=== PATIENT | female | born 1960 | race Hispanic/Latino ===

== ENCOUNTER 2019-03-13 09:52 | Inpatient (IN) | payer MEDICAID, OTHER ==
[2019-03-13 10:02] VITALS: O2SAT 100; BMI 21.0
--- NOTE | 2019-03-13 10:03 | ED PDOC ---
Psych Transfer Clearance - Clearance Statement Clearance Statement: Reviewed vital signs, lab results and transfer papers. Patient clinically stable for psychiatric admission.
[2019-03-13] MEDS ORDERED: Bismuth Subsalicylate 262 mg/15 ml Sus (240 ml) PO PRN (10:25)
[2019-03-13] MEDS ORDERED: Magnesium Hydroxide Susp 30 ml UD PO PRN (10:25)
[2019-03-13] MEDS ORDERED: Alum-Mag Hydrox-Simethicone Susp (30 mL) PO PRN (10:25)
--- NOTE | 2019-03-13 11:50 | PCM.BM ---
<[place] - Last Filed: 03/13/19 11:48> Treatment Plan Problems - Problems identified on initial assessmt High Risk: Violence Date Initiated: 03/13/19 Time Initiated: 11:49 Assessment reference: NA Status: Active Medication nonadherence Date Initiated: 03/13/19 Time Initiated: 11:50 Assessment reference: NA Status: Active Impaired Communication Date Initiated: 03/13/19 Time Initiated: 11:51 Assessment reference: NA Status: Active Treatment assets and liabiliti Patient Assests: ADL independent Patient Liabilities: relationship conflicts - Milieu Protocol Maintain good personal hygiene: daily Encourage regular showers, daily Remind patient to perform daily oral care, daily Assist patient to perform ADL's Maintain personal safety: every shift Educate patient to report safety concerns to staff, every shift Monitor environment for contraband/sharps Medication safety: Monitor for expected outcome, potential side effects: every shift, Assess barriers to learning: every shift, Assess readiness for medication education: every shift Family Contact Family involvement: Family/SO is involved Family contact: Patient agrees to contact <Renée Chao - Last Filed: 03/14/19 12:21> Treatment Plan Problems - Problems identified on initial assessmt High Risk: Violence Date Initiated: 03/13/19 Time Initiated: 11:49 Assessment reference: NA Status: Active Medication nonadherence Date Initiated: 03/13/19 Time Initiated: 11:50 Assessment reference: NA Status: Active Impaired Communication Date Initiated: 03/13/19 Time Initiated: 11:51 Assessment reference: NA Status: Active Problem 2 Date Initiated: 03/13/19 Time Initiated: 11:50 Problem 3 Date Initiated: 03/13/19 Time Initiated: 11:51 Assessment reference: NA Status: Active - Diagnosis (1) Schizoaffective disorder Status: Acute Interventions: Medication management, Individual and group therapy, Psychoeducation 03/14/19 12:22 Treatment Plan Review - Problem High Risk: Violence Time Initiated: 11:49 Medication nonadherence Time Initiated: 11:50 Impaired Communication Time Initiated: 11:51 Problem 2 Time Initiated: 11:50 Problem 3 Time Initiated: 11:51 <Lalito Winchester - Last Filed: 03/14/19 15:23> Family Contact Family contact: Patient agrees to contact, Family has been contacted by patient, Telephone contact initiated by staff Family contact name: Ankita - Daughter Family contacted how many times per week?: 5 Family contact comment: Help Desk Technician spoke with pt's daughter, Ankita [phone]. Ankita reported that she did not want pt admitted to [facility] and is angered and upset that she was not consulted beforehand. Ankita reported that pt is far from her home and she does not understand why pt is so far. Ankita refused to speak to commercial loan underwriter regarding pt's history until commercial loan underwriter reads pt's treatment summary in chart. Help Desk Technician looked through pt's chart twice and did not find summary. Help Desk Technician then called Ankita again and she will attempt to fax in a few hours. Ankita then reported that she would come to the unit around 1730 and expects to meet with commercial loan underwriter then to discuss pt's history. Ankita reported that pt was to be treated at [facility] in [facility] but did not attend. Help Desk Technician awaiting treatment summary fax. - Goals for Treatment Patient goals for treatment: Pt is not angaged in treatment and is asking how long she will have to stay. Pt is denying all acute phychiatric symptoms at this time and has no goals for treatment. Discharge/Continuing Care - Education Needs Education Needs: Family Medication, Family Diagnosis/Disease Process, Family Coping Skills, Family Aftercare Safety Plan, Patient Medication, Patient Diagnosis/Disease Process, Patient Coping Skills, Patient Aftercare Safety Plan - Discharge Discharge Criteria: Tolerates medication w/o severe side effects, Free of Suicidal thoughts, Free of paranoid thoughts, Free of agitation, No longer exhibiting s/s of withdrawal, Reduction of target symptoms Discharge to:: Home - Treatment Team Participation Discussed with Family/SO: Yes Was Patient/Family/SO present at Treatment Team Meeting: Yes <Alena Alvarez - Last Filed: 03/16/19 08:22> Discharge/Continuing Care - Discharge Discharge to:: With Family - Additional Comments 03/16/19 08:14 Pt seen and discussed in team meeting. Chief Hydroelectric Station Operator services offered to pt and declined stating "too long." Reason for hospitalization reviewed and discussed. Pt reported feeling unsafe at home talking about someone wanting to attack her. When asked if it was a person or animal, pt stated it was a person; however, cannot state who or why. Pt reported feeling fearful of returning home. 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 Pt resides alone. Pt's medical and social issues reviewed and discussed. Pt's medications reviewed. Please refer to Dr. Chao progress note for medication recommendations and plan. Tx plan reviewed a nd discussed, pt verbalized agreement. Pt signed written consent form for her daughter, Ankita Banda. Eren THOMAS to continue to follow case.
--- NOTE | 2019-03-13 12:26 | PCM.PSYCH ---
Initial Psychiatric Evaluation - Initial Psychiatric Evaluation Type of Admission: Voluntary Legal Status: Capacity Chief Complaint (in patient's own words): Bizarre Behavior Patient's Reaction to Hospitalization: HPI: 59 yo female w/ h/o schizoaffective disorder, presents w/ acute bizarre behavior, paranoia, poor appetite, making vague suicidal comments to family that she would "be better off ." Patient is currently not cooperative with interview, guarded and refusing to answer most questions. She denies acute AH/VH, but is bizarre and seems internally preoccupied. She denies acute SI/HI to telegraphic typewriter installer. Patient is refusing to change her medications. PPHx: As per chart, patient has a history of Schizoaffective Disorder and is currently on Latuda 40 mg PO Daily and Elavil 12.5 mg PO HS. Patient will not provide any more information. PMHx: Hypothryoidism ALL: NKDA SHx: Denies drugs/etoh/cig use Current Medications: Active Medications Generic Name Dose Route Start Last Admin Trade Name Freq PRN Reason Stop Dose Admin Acetaminophen 650 mg 03/13/19 10:25 Tylenol 325mg Tab PO Q4 PRN Pain, moderate (4-7) Al Hydrox/Mg Hydrox/Simethicone 30 ml 03/13/19 10:25 Maalox Plus 30 Ml PO Q4 PRN Dyspepsia Bismuth Subsalicylate 524 mg 03/13/19 10:25 Pepto-Bismol PO Q4 PRN Diarrhea Lorazepam 0.5 mg 03/13/19 10:25 Ativan PO 03/27/19 10:26 HS PRN Insomnia Lorazepam 0.5 mg 03/13/19 10:25 Ativan PO 03/27/19 10:26 Q6 PRN Anixety/Agitation Magnesium Hydroxide 30 ml 03/13/19 10:25 Milk Of Magnesia PO HS PRN Constipation Past Psychiatric History - Past Psychiatric History Pertinent Medical Hx (Current Medical&Sleep Prob, Allergies): Allergies Allergy/AdvReac Type Severity Reaction Status Date / Time No Known Allergies Allergy Verified 03/13/19 10:02 Amitriptyline [Elavil] 12.5 mg PO HS 03/13/19 Levothyroxine [Synthroid] 75 mcg PO DAILY 03/13/19 Lurasidone Hydrochloride [Latuda] 40 mg PO DAILY 03/13/19 Review of Systems - Psychiatric Psychiatric: As Per HPI, Abnormal Sleep Pattern, Behavioral Changes, Change in Appetite, Difficulty Concentrating, Irritability, Paranoia, Suicidal Ideation Mental Status Examination - Personal Presentation Personal Presentation: Looks stated age - Affect Affect: Constricted - Motor Activity Motor Activity: Calm - Reliability in Providing Information Reliability in Providing Information: Poor, due to alteration in thoughts - Speech Speech: Coherent - Mood Mood: Neutral - Formal Thought Process Formal Thought Process: Delusions, Paranoia - Hallucinations/Delusions Additional comments: Denies AH/VH, but patient seems internally preoccupied - Obsessions/Compulsions Obsessions: No Compulsions: No - Cognitive Functions Orientation: Person, Place, Situation, Time Sensorium: Alert Judgement: Imparied, as evidence by: Poor judgement, Imparied, as evidence by: Lack of insight into illness - Risk Risk: Diminished functioning - Strength & Assets Inventory Strength & Assets Inventory: Family support DSM 5 DX - DSM 5 DSM 5 Diagnosis: Schizoaffective Disorder - Recommended/Plan of Treatment Treatment Recommendations and Plan of Treatment: Schizoaffective Disorder -Admit to psychiatry unit -Individual and group therapy -Psychoeducation -Continue Latuda and Elavil; patient not agreeable to medication changes -Obtain collateral history -Medicine consult -Disposition planning Projected ELOS: 7-10 days Discharge Plan and Discharge Criteria: Discharge when patient is psychiatrically stable - Smoking Cessation Smoking Cessation Initiated: No Reason for not providing: Not indicated
[2019-03-13] MEDS ORDERED: LATUDA 40 MG PO SCH (12:45)
--- NOTE | 2019-03-13 18:29 | CP.PCM.CON ---
History of Present Illness - History of Present Illness History of Present Illness: 59 yo female transferred from [facility] to [facility] because of psychotic behaviour. Review of Systems - Review of Systems Systems not reviewed;Unavailable: Uncooperative Past Patient History - Tetanus Immunizations Tetanus Immunization: Unknown - Past Social History Smoking Status: Never Smoked Chewing Tobacco Use: No Cigar Use: No Alcohol: None Drugs: Denies - CARDIAC Hx Cardiac Disorders: No - PULMONARY Hx Respiratory Disorders: No - NEUROLOGICAL Hx Neurological Disorder: No - HEENT Hx HEENT Problems: No - RENAL Hx Chronic Kidney Disease: No - ENDOCRINE/METABOLIC Hx Endocrine Disorders: No - INTEGUMENTARY Hx Dermatological Problems: No - MUSCULOSKELETAL/RHEUMATOLOGICAL Hx Musculoskeletal Disorders: No Hx Falls: No - GASTROINTESTINAL Hx Gastrointestinal Disorders: No - GENITOURINARY/GYNECOLOGICAL Hx Genitourinary Disorders: No - PSYCHIATRIC Hx Bipolar Disorder: Yes Hx Substance Use: No - SURGICAL HISTORY Hx Surgeries: No - ANESTHESIA Hx Anesthesia: No Meds Allergies/Adverse Reactions: Allergies Allergy/AdvReac Type Severity Reaction Status Date / Time No Known Allergies Allergy Verified 03/13/19 10:02 - Medications Medications: Current Medications Acetaminophen (Tylenol 325mg Tab) 650 mg PO Q4 PRN PRN Reason: Pain, moderate (4-7) Al Hydrox/Mg Hydrox/Simethicone (Maalox Plus 30 Ml) 30 ml PO Q4 PRN PRN Reason: Dyspepsia Amitriptyline HCl (Elavil) 12.5 mg PO HS JULIETA Bismuth Subsalicylate (Pepto-Bismol) 524 mg PO Q4 PRN PRN Reason: Diarrhea Home Med (Patient's Own Medication) 40 unit PO DAILY JULIETA Levothyroxine Sodium (Synthroid) 75 mcg PO DAILY@0630 JULIETA Lorazepam (Ativan) 0.5 mg PO HS PRN PRN Reason: Insomnia Stop: 03/27/19 10:26 Lorazepam (Ativan) 0.5 mg PO Q6 PRN PRN Reason: Anixety/Agitation Stop: 03/27/19 10:26 Magnesium Hydroxide (Milk Of Magnesia) 30 ml PO HS PRN PRN Reason: Constipation Physical Exam - Constitutional Appears: Well (patient refused to be examined) Results - Vital Signs Recent Vital Signs: Last Vital Signs Temp 98.5 F 05/11/19 16:34 Pulse 70 03/13/19 16:34 Resp 18 03/13/19 16:34 BP 120/78 03/13/19 16:34 Pulse Ox 100 03/13/19 10:00 Assessment & Plan (1) Psychosis Status: Acute Comment: psyche is managing
[2019-03-14] MEDS: Levothyroxine 75 MCG TAB PO SCH ×2 (06:09→09:34)
[2019-03-14] MEDS: LATUDA 40 MG PO SCH (09:34)
[2019-03-14 11:23] LABS: ALB/GLOB RATIO 1.5 (1.0-2.1); ALBUMIN 4.7 g/dL (3.5-5.0); ALT/SGPT 35 U/L (9-52); AST/SGOT 28 U/L (14-36); BLOOD UREA NITROGEN 12 mg/dl (7-17); CALCIUM 10.6 mg/dL (8.4-10.2); GFR NON-AFRICAN AMERICAN > 60; HDL CHOLESTEROL 71 MG/DL (30-70)
[2019-03-14 11:33] LABS: LDL CHOLESTEROL 66 mg/dL (0-129)
[2019-03-14 12:09] LABS: HEMOGLOBIN 14.2 g/dL (12.0-16.0); MEAN CELL VOLUME 81.1 fl (81.0-99.0); MEAN CORPUSCULAR HEMOGLOBIN 25.9 pg (27.0-31.0); MEAN CORPUSCULAR HGB CONC 31.9 g/dL (33.0-37.0); RBC 5.51 Mil/uL (3.80-5.20); RED CELL DISTRIBUTION WIDTH 18.2 % (11.5-14.5); WHITE BLOOD COUNT 7.6 K/uL (4.8-10.8)
--- NOTE | 2019-03-14 12:33 | PCM.PYCHPN ---
Psychiatric Progress Note - Psychiatric Progress Note Patient seen today, length of contact: Pt evaluated, case discussed w/ team, chart reviewed Patient Chief Complaint: Bizarre Behavior Problems Identified/Issues Discussed: Patient continues to be guarded, evasive, seems internally preoccupied, although she denies acute AH/VH. She continues to refuse medication changes. She denies SI/HI. She states that she does not feel safe at home and continues to be paranoid. Medication Change: No (Patient refusing medication changes) Medical Record Reviewed: Yes Consults ordered or reviewed: Medicine consult Mental Status Examination - Cognitive Function Orientation: Person, Place, Situation, Time - Mood Mood: Neutral - Affect Affect: Constricted - Formal Thought Process Formal Thought Process: Delusions, Paranoia Psychotic Thoughts and Behaviors: +Paranoia - Suicidal Ideation Suicidal Ideation: No - Homicidal Ideation Homicidal Ideation: No Goal/Treatment Plan - Goal/Treatment Plan Need for Continued Stay: Remain at risks for inpatient hospitalization, Discharge may exacerbated symptoms Progress Toward Problem(s) and Goals/Treatment Plan: Schizoaffective Disorder -Individual and group therapy -Psychoeducation -Continue Latuda and Elavil; patient not agreeable to medication changes -Obtain collateral history -Medicine consult -Disposition planning
[2019-03-15] MEDS: LATUDA 40 MG PO SCH (09:24)
[2019-03-15] MEDS: Levothyroxine 75 MCG TAB PO SCH (09:25)
--- NOTE | 2019-03-15 13:27 | PCM.PYCHPN ---
Psychiatric Progress Note - Psychiatric Progress Note Patient seen today, length of contact: Pt evaluated, case discussed w/ team, chart reviewed Patient Chief Complaint: Paranoia Problems Identified/Issues Discussed: Patient continues to be paranoid and is fearful of returning home due to concerns that someone may try to harm her, she does not know who may harm her or why. She continues to be guarded and evasive. She denies acute AH/VH. She is only agreeable to increasing the Latuda at this time. She is not agreeable to changing medications. Staff Forester attempted to call patient's daughter, Ankita Banda [phone], but she did not pickling tank operator the phone and her voicemail is full. Medication Change: Yes (Attempt to increase Latuda tomorrow AM) Medical Record Reviewed: Yes Consults ordered or reviewed: Medicine consult Mental Status Examination - Cognitive Function Orientation: Person, Place, Situation, Time - Mood Mood: Neutral - Affect Affect: Constricted - Formal Thought Process Formal Thought Process: Delusions, Paranoia Psychotic Thoughts and Behaviors: +Paranoia - Suicidal Ideation Suicidal Ideation: No - Homicidal Ideation Homicidal Ideation: No Goal/Treatment Plan - Goal/Treatment Plan Need for Continued Stay: Remain at risks for inpatient hospitalization, Discharge may exacerbated symptoms Progress Toward Problem(s) and Goals/Treatment Plan: Schizoaffective Disorder -Individual and group therapy -Psychoeducation -Continue Latuda and Elavil; will attempt to increase Latuda tomorrow -Staff Forester attempted to call patient's daughter -Medicine consult -Disposition planning
--- NOTE | 2019-03-15 13:43 | CT ---
Date of service: 03/15/2019 PROCEDURE: CT HEAD WITHOUT CONTRAST. HISTORY: Worsening mental status COMPARISON: None available. TECHNIQUE: Axial computed tomography images were obtained through the head/brain without intravenous contrast. Radiation dose: Total exam DLP = 779.08 mGy-cm. This CT exam was performed using one or more of the following dose reduction techniques: Automated exposure control, adjustment of the mA and/or kV according to patient size, and/or use of iterative reconstruction technique. FINDINGS: HEMORRHAGE: No intracranial hemorrhage. BRAIN: Normal bowers-white matter differentiation and density are appreciated throughout the cerebrum and cerebellum with the brainstem appearing unremarkable as well. There is no mass effect. There is no suspicious extra-axial fluid collection and the midline brain anatomy appears diffusely unremarkable. VENTRICLES: Unremarkable. No hydrocephalus. CALVARIUM: No destructive bony lesion or displaced fracture identified including through the skullbase. PARANASAL SINUSES: Unremarkable as visualized. No significant inflammatory changes. MASTOID AIR CELLS: Unremarkable as visualized. No inflammatory changes. OTHER FINDINGS: None. IMPRESSION: Unremarkable unenhanced head CT.
[2019-03-16] MEDS: Levothyroxine 75 MCG TAB PO SCH (08:50)
[2019-03-16] MEDS: LATUDA 40 MG PO SCH (08:51)
--- NOTE | 2019-03-16 12:56 | PCM.PYCHPN ---
Psychiatric Progress Note - Psychiatric Progress Note Patient seen today, length of contact: Pt evaluated, case discussed w/ team, chart reviewed Patient Chief Complaint: Paranoia Problems Identified/Issues Discussed: Patient continues to be paranoid, anxious, guarded and fearful that someone may harm her at home. She is agreeable to increase Latuda at this time. She denies acute AH/VH. No adverse effects to medications reported. Semiconductor Packages Leak Tester spoke with patient's daughter, Ankita Banda [phone], with DANIEL THOMAS present during the conversation. We reviewed the patient's medical history, the results of her CT scan, her current medications and treatment options and her pending consults. Patient's daughter is in agreement with the treatment plan at this time. Medication Change: Yes (Increase Latuda) Medical Record Reviewed: Yes Consults ordered or reviewed: Medicine consult Mental Status Examination - Cognitive Function Orientation: Person, Place, Situation, Time - Mood Mood: Neutral - Affect Affect: Constricted - Formal Thought Process Formal Thought Process: Delusions, Paranoia Psychotic Thoughts and Behaviors: +Paranoia - Suicidal Ideation Suicidal Ideation: No - Homicidal Ideation Homicidal Ideation: No Goal/Treatment Plan - Goal/Treatment Plan Need for Continued Stay: Remain at risks for inpatient hospitalization, Discharge may exacerbated symptoms Progress Toward Problem(s) and Goals/Treatment Plan: Schizoaffective Disorder -Individual and group therapy -Psychoeducation -Increase Latuda -Continue Elavil -Case discussed w/ patient's daughter w/ MARTHA SANCHEZ present on the phone conversation -Psychology consult -Neurology consult -Medicine consult -Disposition planning
[2019-03-16 13:05] LABS: SQUAMOUS EPITHIAL 4 /hpf (0-5); URINE BACTERIA OCC (<OCC); URINE BILIRUBIN NEGATIVE (NEGATIVE); URINE BLOOD NEGATIVE (NEGATIVE); URINE CLARITY CLOUDY (Clear); URINE COLOR YELLOW (YELLOW); URINE GLUCOSE (UA) NEG (NEGATIVE); URINE LEUKOCYTE ESTERASE MOD Leu/uL (Negative); URINE PROTEIN 30 mg/dL (NEGATIVE)
--- NOTE | 2019-03-16 15:48 | CP.PCM.CON ---
History of Present Illness - History of Present Illness History of Present Illness: Neurology Consultation Note: Consult requested by Dr. Chao Mrs. Timmons is a 59-year-old woman with a past medical history of schizoa ffective disorder, who is admitted to psychiatry for bizarre behavior. Her daughter, who is a physician, states that her mother has been having progressive cognitive decline as well over the last month. When I met with the patient, she was alert, oriented, able to provide a good history and told me that she is depressed and believes that her short term memory may be affected by that. She also admitted to hearing voices and feeling distracted. Review of Systems - Review of Systems Systems not reviewed;Unavailable: Psychotic Past Patient History - Tetanus Immunizations Tetanus Immunization: Unknown - Past Social History Smoking Status: Never Smoked Chewing Tobacco Use: No Cigar Use: No Alcohol: None Drugs: Denies - CARDIAC Hx Cardiac Disorders: No - PULMONARY Hx Respiratory Disorders: No - NEUROLOGICAL Hx Neurological Disorder: No - HEENT Hx HEENT Problems: No - RENAL Hx Chronic Kidney Disease: No - ENDOCRINE/METABOLIC Hx Endocrine Disorders: No - INTEGUMENTARY Hx Dermatological Problems: No - MUSCULOSKELETAL/RHEUMATOLOGICAL Hx Falls: No - GASTROINTESTINAL Hx Gastrointestinal Disorders: No - GENITOURINARY/GYNECOLOGICAL Hx Genitourinary Disorders: No - PSYCHIATRIC Hx Substance Use: No - SURGICAL HISTORY Hx Surgeries: No - ANESTHESIA Hx Anesthesia: No Meds Allergies/Adverse Reactions: Allergies Allergy/AdvReac Type Severity Reaction Status Date / Time No Known Allergies Allergy Verified 03/13/19 10:02 - Medications Medications: Current Medications Acetaminophen (Tylenol 325mg Tab) 650 mg PO Q4 PRN PRN Reason: Pain, moderate (4-7) Al Hydrox/Mg Hydrox/Simethicone (Maalox Plus 30 Ml) 30 ml PO Q4 PRN PRN Reason: Dyspepsia Amitriptyline HCl (Elavil) 12.5 mg PO HS [facility] Last Admin: 03/15/19 21:07 Dose: 12.5 mg Bismuth Subsalicylate (Pepto-Bismol) 524 mg PO Q4 PRN PRN Reason: Diarrhea Home Med (Patient's Own Medication) 80 unit PO DAILY [facility] Last Admin: 03/16/19 08:51 Dose: 80 unit Levothyroxine Sodium (Synthroid) 75 mcg PO DAILY@0630 [facility] Last Admin: 03/16/19 08:50 Dose: 75 mcg Lorazepam (Ativan) 0.5 mg PO HS PRN PRN Reason: Insomnia Stop: 03/27/19 10:26 Lorazepam (Ativan) 0.5 mg PO Q6 PRN PRN Reason: Anixety/Agitation Stop: 03/27/19 10:26 Magnesium Hydroxide (Milk Of Magnesia) 30 ml PO HS PRN PRN Reason: Constipation Physical Exam - Constitutional Appears: Well - Head Exam Head Exam: ATRAUMATIC, NORMAL INSPECTION, NORMOCEPHALIC - Eye Exam Eye Exam: EOMI, Normal appearance, PERRL Pupil Exam: NORMAL ACCOMODATION, PERRL - ENT Exam ENT Exam: Mucous Membranes Moist, Normal Exam - Neck Exam Neck exam: Positive for: Normal Inspection - Respiratory Exam Respiratory Exam: Clear to Auscultation Bilateral, NORMAL BREATHING PATTERN - Cardiovascular Exam Cardiovascular Exam: REGULAR RHYTHM, +S1, +S2 - GI/Abdominal Exam GI & Abdominal Exam: Normal Bowel Sounds, Soft. absent: Tenderness - Extremities Exam Extremities exam: Positive for: normal inspection - Back Exam Back exam: NORMAL INSPECTION - Neurological Exam Neurological exam: Alert, CN II-XII Intact, Normal Gait, Oriented x3, Reflexes Normal - Psychiatric Exam Psychiatric exam: Depressed - Skin Skin Exam: Dry, Intact, Normal Color, Warm Results - Vital Signs Recent Vital Signs: Last Vital Signs Temp 98.0 F 03/16/19 06:00 Pulse 70 03/16/19 06:00 Resp 18 03/16/19 06:00 BP 123/78 03/16/19 06:00 Pulse Ox 100 03/13/19 10:00 - Labs Result Diagrams: 03/14/19 10:05 03/14/19 10:05 Labs: Laboratory Results - last 24 hr 03/16/19 12:42 Urine Color Yellow Urine Clarity Cloudy Urine pH 6.0 Ur Specific [place] 1.018 Urine Protein 30 Urine Glucose (UA) Neg Urine Ketones 20 Urine Blood Negative Urine Nitrate Negative Urine Bilirubin Negative Urine Urobilinogen 2.0 H Ur Leukocyte Esterase Mod Urine RBC (Auto) 2 Urine Microscopic WBC 5 Ur Squamous Epith Cells 4 Urine Bacteria Occ H Hyaline Casts 6-10 H Assessment & Plan (1) Pseudodementia Assessment and Plan: Likely due to underlying depression and is also distracted by auditory hallucinations. CT head is normal and labs appear normal. Heavy metal screen can be checked as well as B12, B6, folate, vitamin D levels. Management of the underlying condition is recommended. Neuropsychiatric testing will reveal more of the deficits. Thank you for this consultation. Status: Acute
[2019-03-17] MEDS: Levothyroxine 75 MCG TAB PO SCH (05:58)
[2019-03-17 06:17] VITALS: BP 105/70; PULSE 60; RESP 20; TEMP 97.5
[2019-03-17] MEDS: LATUDA 40 MG PO SCH (08:45)
--- NOTE | 2019-03-17 12:33 | PCM.PYCHDC ---
Mental Status Examination - Mental Status Examination Orientation: Person, Place, Situation, Time Memory: Intact Mood: Neutral Affect: Broad Speech: Appropriate Attention: WNL Formal Thought Process: No Impairment Description of patient's judgement and insight: Improving I/J Psychotic Thoughts and Behaviors: Patient denies acute AH/VH/paranoia/delusions to health technical writer Suicidal Ideation: No Current Homicidal Ideation?: No Discharge Summary - Discharge Note Reason for Hospitalization: HPI: 59 yo female w/ h/o schizoaffective disorder, presents w/ acute bizarre behavior, paranoia, poor appetite, making vague suicidal comments to family that she would "be better off ." Patient is currently not cooperative with interview, guarded and refusing to answer most questions. She denies acute AH/VH, but is bizarre and seems internally preoccupied. She denies acute SI/HI to health technical writer. Patient is refusing to change her medications. PPHx: As per chart, patient has a history of Schizoaffective Disorder and is currently on Latuda 40 mg PO Daily and Elavil 12.5 mg PO HS. Patient will not provide any more information. PMHx: Hypothryoidism ALL: NKDA SHx: Denies drugs/etoh/cig use Laboratory Data: Abnormal Lab Results 03/16/19 12:42 Urine Color Yellow Urine Clarity Cloudy Urine pH 6.0 Ur Specific [place] 1.018 Urine Protein 30 Urine Glucose (UA) Neg Urine Ketones 20 Urine Blood Negative Urine Nitrate Negative Urine Bilirubin Negative Urine Urobilinogen 2.0 H Ur Leukocyte Esterase Mod Urine RBC (Auto) 2 Urine Microscopic WBC 5 Ur Squamous Epith Cells 4 Urine Bacteria Occ H Hyaline Casts 6-10 H Consultations:: List each consultation separately and include: 1. Reason for request. 2. Findings. 3. Follow-up Consultations: Medicine consult, Neurology consult Summary of Hospital Course include:: 1. Description of specific treatment plan utilized for patients during their course of treatmen. 2. Summarize the time- course for resolution of acute symptoms and/or regressed behaviors. 3. Describe issues identified and worked on during hospitalization. 4. Describe medication utilized. 5. Describe medical problems identified and treated. 6. Reassessment of suicide risk Summary of Hospital Course: Patient was admitted the psychiatric unit. Individual and group therapy were provided. Latuda was increased to 80 mg PO Daily. Patient has been intermittently agreeable to treatment. Patient requested to leave the hospital yesterday, but refused to sign the 48 hr notice because she does not want to sign any documents without her daughter present. She continues to request to be discharged from the hospital. Benefits of treatment were explained and risks of leaving AMA were explained. Form Grader Operator spoke to patient using [employer]ali clinical trials systems administrator Luzmaria, code: [id number]. Form Grader Operator also spoke to patient's daughter, who agrees that the patient should be discharged from the hospital and she agreed to assume responsibility for the patient. Form Grader Operator explained her treatment and the results of the CT scan and neurology consult. Patient is currently A + O x 4 and denies acute depression/anxiety/AH/VH/paranoia/SI/HI to health technical writer. - Diagnosis (1) Schizoaffective disorder Current Visit: Yes Status: Chronic - Final Diagnosis (DSM 5) Condition upon Discharge: STABLE DSM 5: Schizoaffective Disorder Disposition: AGAINST MEDICAL ADVICE Follow-up Treatment Plan: Schizoaffective Disorder -Discharge AMA - Smoking Cessation Smoking Cessation Medication prescribed: No Reason for not providing: Not indicated - Antipsychotic Medications Pt discharged on 2 or more routine antipsychotic medications: No
[2019-03-17 17:38] LABS: FOLATE > 20.0 ng/mL
== END 2019-03-17 03:45 | disposition left against medical advice (07) | DRG 750 ==
LOC: H.ER 09:52 → H.ERHOLD 10:02 → H.STEP 10:37
PROVIDERS: ADMIT Psychiatry & Neurology Psychiatry; ATTEND Psychiatry & Neurology Psychiatry
PROC: GZHZZZZ Group Psychotherapy (ICD-10-PCS; principal; 2019-03-13)
DX: F25.9 Schizoaffective disorder, unspecified (principal); Z91.14 Patient's other noncompliance with medication regimen